=== PATIENT | female | born 1980 | race Caucasian/White ===

== ENCOUNTER 2019-10-06 10:45 | Emergency (ER) | payer BC ==
[~2019-10-06] VITALS: Ht 167.6 cm; Wt 90.7 kg
[2019-10-06] MEDS ORDERED: cloNIDine HCL 0.1 MG TAB PO ONE (11:30)
[2019-10-06] MEDS ORDERED: SODIUM CHLORIDE 0.9% 1,000 ML IV ONE (11:31)
[2019-10-06] MEDS ORDERED: KETOROLAC TROMETH 15 mg/ml 1ML VL IV ONE (11:45)
[2019-10-06] MEDS ORDERED: PROMETHAZINE HCL 25 MG/ML 1ML IV PRN (11:45)
[2019-10-06 12:17] LABS: Basophils # (auto) 0 uL; Basophils % (auto) 0.3 % (0.0-2.0); Eosinophils # (auto) 0.3 uL; Eosinophils % (auto) 3.3 % (0.0-7.0); Hematocrit 46.1 % (36.0-46.0); Hemoglobin 15.9 g/dL (12.2-16.2); Lymphocytes # (auto) 1.3 uL; Lymphocytes % (auto) 14.7 % (10.0-50.0); Mean Corpuscular Hemoglobin 31.8 pg (28.0-32.0); Mean Corpuscular Hgb Conc. 34.5 g/dL (32.0-36.0); Mean Corpuscular Volume 92.3 fL (80.0-100.0); Monocytes # (auto) 0.7 uL; Monocytes % (auto) 7.4 % (0.0-12.0); Neutrophils # (auto) 6.7 uL; Neutrophils % (auto) 74.3 % (37.0-80.0); Platelet Count (auto) 212 10^3/uL (140-450); Red Blood Cells 4.99 10^6/uL (4.0-5.20); Red Cell Distribution Width 14.9 % (11.8-14.3)
[2019-10-06 12:19] LABS: Albumin 3.9 g/dL (3.4-5.0); Calcium 9.5 mg/dL (8.5-10.1); Magnesium 2.1 mg/dL (1.6-2.6); Potassium 3.8 mmol/L (3.5-5.1)
[2019-10-06 12:22] LABS: BUN/Creatinine Ratio 15.3; Bilirubin, Total 0.6 mg/dL (0.2-1.0); Total Protein 7.6 g/dL (6.4-8.2)
[2019-10-06 12:53] VITALS: BP 220/132
[2019-10-06] MEDS ORDERED: cefTRIAXone 1GM/50ML D5W 50 ML IV ONE ×2 (13:11→13:15)
[2019-10-06 13:54] LABS: Urine Bacteria NONE SEEN /hpf (None Seen); Urine Blood Negative /uL (Negative); Urine Mucus FEW (None Seen); Urine Specific Gravity 1.021 (1.001-1.035); Urine WBC None Seen /hpf (0 - 5)
== END 2019-10-06 14:25 | disposition home or self-care (01) ==
LOC: EDBD 10:45 → ER 10:45
DX: T19.2XXA Foreign body in vulva and vagina, initial encounter (principal); M54.5 Low back pain; N73.9 Female pelvic inflammatory disease, unspecified; N83.201 Unspecified ovarian cyst, right side; I10 Essential (primary) hypertension; Z90.49 Acquired absence of other specified parts of digestive tract; X58.XXXA Exposure to other specified factors, initial encounter; Y93.89 Activity, other specified; Y92.89 Other specified places as the place of occurrence of the external cause; Y99.8 Other external cause status
CPT/HCPCS: 36415; 76856; 80053; 81001; 83690; 83735; 84702; 85025; 96365; 96375; 99284; J0696; J1885; J2550; J7030

== ENCOUNTER 2022-01-07 07:53 | Emergency (ER) | payer BC ==
[~2022-01-07] VITALS: Ht 167.6 cm; Wt 89.8 kg
[2022-01-07] MEDS ORDERED: cloNIDine HCL 0.1 MG TAB PO ONE (08:15)
[2022-01-07] MEDS ORDERED: ONDANSETRON ODT 4 MG TAB PO ONE (09:30)
[2022-01-07] MEDS ORDERED: methylPREDNISolone SOD SUCC 125 MG/2 ML VL IM ONE (09:30)
[2022-01-07] MEDS ORDERED: cefTRIAXone SOD 1,000 MG VL IM ONE (09:30)
[2022-01-07] MEDS ORDERED: HYDROcodone-ACET 5/325MG TAB PO ONE (09:30)
[2022-01-07] MEDS ORDERED: IBUP800T27 PO (09:47)
[2022-01-07] MEDS ORDERED: AMOX-277 PO (09:47)
[2022-01-07] MEDS ORDERED: BENZOCAINE (DENTAL) 20 % SPRAY 60ML MT ONE (10:00)
[2022-01-07 10:35] VITALS: BP 132/82
== END 2022-01-07 10:40 | disposition home or self-care (01) ==
LOC: ER 07:53
DX: K04.7 Periapical abscess without sinus (principal); I10 Essential (primary) hypertension; Z90.49 Acquired absence of other specified parts of digestive tract
CPT/HCPCS: 96372; 99284; J0696; J2930; Q0162

== ENCOUNTER 2022-07-24 10:13 | Emergency (ER) | payer BC, MEDICAID ==
[~2022-07-24] VITALS: Ht 167.6 cm; Wt 88.6 kg
[~2022-07-24 10:13] MED LIST: IBUP800T27 PO
[2022-07-24 15:22] VITALS: BP 158/103
[2022-07-24] MEDS ORDERED: IBUP600T27 PO (15:27)
[2022-07-24] MEDS ORDERED: FLUT110A INH (15:27)
[2022-07-24] MEDS ORDERED: ACET-1158 PO (15:27)
[2022-07-24] MEDS ORDERED: ALBU108A5 IN (15:29)
== END 2022-07-24 15:37 | disposition home or self-care (01) ==
LOC: ER 10:13
DX: U07.1 COVID-19 (principal); I10 Essential (primary) hypertension; Z90.49 Acquired absence of other specified parts of digestive tract
CPT/HCPCS: 36415; 87426; 87804